=== PATIENT | female | born 1945 | race Caucasian/White ===

== ENCOUNTER 2017-12-25 00:13 | Emergency (ER) | payer MEDICARE, SELFPAY ==
[2017-12-25 00:14] VITALS: BP 206/91; PULSE 95; RESP 16; O2SAT 98
[2017-12-25 00:19] VITALS: BP 230/106; PULSE 86; RESP 18; TEMP 36.6; O2SAT 98; BMI 22.9
[2017-12-25 00:23] VITALS: O2SAT 98
--- NOTE | 2017-12-25 00:39 | RAD_ITS ---
STUDY: X-RAY CHEST REASON FOR EXAM: Female, 72 years old. COUGH SINCE 12/12 SEEN IN URGENT CARE X 2 HAD A NEG CXR TECHNIQUE: Frontal and lateral views of the chest. COMPARISON: None. FINDINGS: The lungs are clear and expanded. There is no demonstrated pleural abnormality. Normal size heart. Normal mediastinum and lei. Normal visualized pulmonary arteries. Normal visualized aortic arch and descending thoracic aorta. There is demineralization of the osseous structures. There is degenerative osteoarthritis of the bilateral shoulders. There is no demonstrated abnormality of the visualized soft tissue structures of the upper abdomen. RAD/Chest PA and Lateral IMPRESSION: Degenerative changes, as described above. No demonstrated acute cardiopulmonary process. Electronically Signed: Camacho Solorio MD at 1:45 EST Tel , Service support ,
[2017-12-25] MEDS: guaiFENesin 600 MG Tablet PO (00:58)
--- NOTE | 2017-12-25 01:10 | ED.DCSUM_ITS ---
- ER Visit Summary Date of Service: 12/25/17 Chief Complaint: [] Cough History of Present Illness: The patient is a 72 F presents with cough for the last 2 weeks. Gradual onset. Nonproductive. She was seen in urgent care 3 times. She had a chest x-ray was -4 days ago. She is using Coricidin and Tessalon Perles with minimal relief. She was on a prednisone dose that she stopped. Non-smoker. Physical Examination: [] Vital signs reviewed General: Well-nourished well-developed Head: Normocephalic atraumatic Eyes: Pupils equal round and reactive to light extraocular movements intact ENT: TMs clear no hemotympanum no trauma Neck: Nontender full range of motion Cardiovascular: Regular rate rhythm no murmurs normal S1-S2 Respiratory: No distress clear to auscultation bilaterally chest nontender Abdomen: Soft nontender nondistended normal bowel sounds no masses Back: Nontender no CVA tenderness Extremities: Nontender active range of motion ?4 extremities no trauma Skin: Normal color no trauma Neuro alert oriented cranial nerves II through XII intact normal strength sensation reflexes Test Results: [] Emergency Department Course and Treatment: [] Repeat chest x-ray negative. Patient given Mucinex. Will use liquid honey as well as Mucinex. I feel she has a cough that is continuous from a upper respiratory infection. Understands this could take another week to clear. Treatment Plan: [] Disposition: [] Impression: [] Upper respiratory infection with cough This note was generated with [employer] dictation software. It may contain incorrect words, spelling, and punctuation that were not noted in review of the chart prior to signing ED Disposition - Plan for ED Patient: Chief Complaint: Cough Referrals: Greer Hollins MD [Primary Care Provider] -
--- NOTE | 2017-12-25 01:10 | ED.DEP ---
ED Disposition - Plan for ED Patient: Disposition: Home or Assisted Living Chief Complaint: Cough Instructions: ED URI Viral Referrals: Greer Hollins MD [Primary Care Provider] -
[2017-12-25 01:23] VITALS: BP 179/80; PULSE 80; RESP 16; O2SAT 98
== END 2017-12-25 01:24 | disposition home or self-care (01) ==
PROVIDERS: Emergency Provider Emergency Medicine; Family Provider Internal Medicine; PCP Internal Medicine
DX: J06.9 Acute upper respiratory infection, unspecified (principal); R05 Cough; I10 Essential (primary) hypertension; Z79.899 Other long term (current) drug therapy
CPT/HCPCS: 71046; 99283

== ENCOUNTER → 2018-08-14 09:13 | Outpatient (CLI) | payer MEDICARE, SELFPAY ==
--- NOTE | 2018-08-14 09:16 | BI_ITS ---
MAMMOGRAPHY - BILATERAL SCREENING REASON FOR EXAM: Female, 73 years old. Routine annual screening examination. PERTINENT HISTORY: Non-contributory. TECHNIQUE: Digital bilateral breast luly (3D mammographic acquisition) in the CC and MLO projections. 2-D mediolateral oblique (MLO) and craniocaudad (CC) views of both breasts were obtained. CAD: Full Field Digital Mammography with Computer Added Detection was performed. COMPARISON: Comparison is made with prior study August 07, 2017 and July 30, 2016. FINDINGS: Breast Composition: The breasts are heterogeneously dense, which may obscure small masses. There are no dominant masses or suspicious calcifications. Stable appearance of the small bilateral axillary lymph nodes. No other significant abnormalities are identified. There has been no significant change since the prior study. BI/SCREENING MAMM (CAD), BILAT IMPRESSION: Stable bilateral screening mammogram. Yearly follow-up mammogram recommended. (A) ASSESSMENT CATEGORY: BIRADS Category 2: Benign. A letter regarding these results will be sent to the patient by the facility within 30 days. Approximately 10% of breast cancers are not detected by mammography. A normal mammogram should not delay biopsy of a clinically suspicious abnormality. [id number] Electronically Signed: Mao Oscar MD at 13:52 EDT Tel [phone], Service support ,
== END ==
PROVIDERS: Family Provider Internal Medicine; PCP Internal Medicine; Referring Provider Obstetrics & Gynecology; Visit Provider Obstetrics & Gynecology
DX: Z12.31 Encounter for screening mammogram for malignant neoplasm of breast (principal)
CPT/HCPCS: 77063; 77067

== ENCOUNTER → 2018-10-15 20:16 | Outpatient (CLI) | payer MEDICARE, SELFPAY | PROVIDERS: Family Provider Internal Medicine; PCP Internal Medicine; Visit Provider Nurse Practitioner | DX: G47.33 Obstructive sleep apnea (adult) (pediatric) (principal) | CPT/HCPCS: 95811 ==

== ENCOUNTER → 2019-03-24 07:00 | Outpatient (CLI) | payer MEDICARE, SELFPAY ==
--- NOTE | 2019-03-24 07:05 | CT_ITS ---
STUDY: CT ABDOMEN AND PELVIS WITH AND WITHOUT CONTRAST REASON FOR EXAM: Female, 74 years old. Microscopic hematuria. RADIATION DOSAGE (If Supplied By Facility): CTDIvol = ( 10.09 ) mGy, DLP = ( 623.88 ) mGycm TECHNIQUE: Transaxial images were obtained from the dome of the diaphragm to the symphysis pubis without oral contrast. 100 IV Isovue 300 was administered. Sagittal and coronal images were reconstructed. Individualized dose optimization techniques were used for this CT. COMPARISON: Comparison is made with prior study dated January 17, 2016. FINDINGS: Minimal degree of increased markings at the lung bases suggestive of mild bibasilar linear atelectasis. The visualized portions of the heart are within normal limits. Normal liver. Normal gallbladder and extrahepatic biliary system. Normal spleen. Focal calcification of the distal portion of the splenic artery. 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 Normal pancreas. Normal bilateral adrenal glands. Normal right kidney. Normal left kidney. Normal visualized stomach. Normal small intestine. Normal colon. There is non-visualization of the appendix. There is diffuse atherosclerotic calcification of the abdominal aorta, without a demonstrated aneurysm. Normal inferior vena cava. Normal retroperitoneum. Normal urinary bladder. There is absence of the uterus consistent with a prior hysterectomy. Normal abdominal wall. Normal osseous structures. CT/CT Abd/Pelvis W/WO Contrast IMPRESSION: No acute abnormality is seen. Electronically Signed: Mao Oscar, at 15:39 EDT , Service support ,
== END ==
PROVIDERS: Family Provider Internal Medicine; PCP Internal Medicine; Referring Provider Nurse Practitioner Adult Health; Visit Provider Nurse Practitioner Adult Health
DX: R31.29 Other microscopic hematuria (principal)
CPT/HCPCS: 74178; Q9967

== ENCOUNTER → 2019-10-12 17:29 | Outpatient (CLI) | payer MEDICARE, SELFPAY | PROVIDERS: Family Provider Internal Medicine; PCP Internal Medicine; Referring Provider Nurse Practitioner Adult Health | DX: R82.998 Other abnormal findings in urine (principal) | CPT/HCPCS: 87086; 87088 ==

== ENCOUNTER 2020-12-27 08:38 | Outpatient (RCR) | payer MEDICARE, SELFPAY | END 2020-12-27 23:59 | LOC: IMMUN 08:38 | PROVIDERS: Visit Provider Family Medicine | DX: Z23 Encounter for immunization (principal) | CPT/HCPCS: 0011A; 0012A; 91301 ==

== ENCOUNTER 2023-07-28 19:57 | Emergency (ER) | payer MEDICARE, SELFPAY ==
[2023-07-28 19:58] VITALS: BP 238/91; PULSE 89; RESP 17; TEMP 36.4; O2SAT 97; BMI 22.8
[2023-07-28 20:21] LABS: Mucous, Urine 0 SEEN /hpf (<or=2+)
[2023-07-28 20:32] LABS: Color, Urine Yellow (Yellow); Glucose, Dipstick Normal (Normal); Ketone-Dipstick Negative (Negative); Leukocyte Esterase-Dipstick 500 /ul (Negative); Nitrite-Dipstick Negative (Negative); Occult Blood-Urine 250 /ul (Negative); Protein-Dipstick 100 mg/dl (Negative); Specific Gravity, Urine 1.015 (1.002-1.030); Urine Bilirubin Dipstick Negative (Negative); Urine Clarity Cloudy (Clear); Urine Urobilinogen Normal (Normal)
[2023-07-28 20:42] LABS: Bacteria 1+ /hpf (None Seen); Red Blood Cells-Urine 50-100 SEEN /hpf (0-5); Renal Epithelial Cells 0-5 SEEN /hpf (0-5); Squamous Epithelial Cells - UA 0-5 SEEN /hpf (5-10); White Blood Cells >100 SEEN /hpf (0-5)
--- NOTE | 2023-07-28 21:15 | ED.VIS.FEGU ---
HPI HPI - Female History of Present Illness Chief Complaint: Complaint PFSH PFSH Home Medications cholecalciferol (vitamin D3) 25 mcg (1,000 unit) tablet (Vitamin D3) 2,000 unit PO DAILY 10/23/15 [History Last Taken 10/22/15] multivitamin with folic acid 400 mcg tablet (Thera) 1 tab PO DAILY 10/23/15 [History Last Taken 10/22/15] valsartan 160 mg tablet 240 mg PO DAILY 10/23/15 [History Last Taken 10/22/15] prednisone 20 mg tablet 60 mg (3 x 20 mg) PO DAILY ##15 11/16/15 [Rx Last Taken Unknown] benzonatate 100 mg capsule 1 - 2 tab PO TID 12/25/17 [History Last Taken Unknown] coenzyme Q10 30 mg capsule 45 mg PO DAILY 12/25/17 [History Last Taken Unknown] omega 6-qty-mzf-fish oil 1,600 mg-500 mg-800 mg/5 mL oral liquid (Fish Oil) 1,700 mg PO DAILY 12/25/17 [History Last Taken Unknown] red yeast rice 600 mg capsule 900 mg PO DAILY 12/25/17 [History Last Taken Unknown] nitrofurantoin macrocrystal 100 mg capsule 100 mg PO BID 7 days #14 caps 07/28/23 [Rx Last Taken Unknown] ondansetron 4 mg disintegrating tablet 4 mg PO Q8H PRN nausea and vomiting 3 days #9 tabs 07/28/23 [Rx Last Taken Unknown] Allergy/AdvReac Type Severity Reaction Status Date / Time amlodipine besylate Allergy Other Verified 07/28/23 21:08 [From Norvas] aspirin [From Fiorinal] Allergy Other Verified 07/28/23 21:08 butalbital [From Fiorinal] Allergy Other Verified 07/28/23 21:08 caffeine [From Fiorinal] Allergy Other Verified 07/28/23 21:08 ciprofloxacin [From Cipro] Allergy Other Verified 07/28/23 21:08 ciprofloxacin HCl Allergy Other Verified 07/28/23 21:08 [From Cipro] erythromycin base Allergy Other Verified 07/28/23 21:08 sulfamethoxazole Allergy Other Verified 07/28/23 21:08 [From Septra] trimethoprim [From Septra] Allergy Other Verified 07/28/23 21:08 almond AdvReac Intermediate Abd Verified 07/28/23 21:09 cramps/diarrhea alendronate sodium AdvReac Other Verified 07/28/23 21:08 [From Fosamax] [place] [employer] AdvReac Upset Verified 07/28/23 21:08 Stomach gluten AdvReac Upset Verified 07/28/23 21:08 Stomach lactose AdvReac Other Verified 07/28/23 21:08 soy AdvReac Upset Verified 07/28/23 21:08 Stomach Surgical History (Updated 07/28/23 @ 21:10 by Kyra Han) History of cholecystectomy Social History Smoking Status: Never smoker EXAM Physical Exam Const Vital Signs: 07/28/23 19:58 07/28/23 21:48 Temperature 97.5 F L Temperature Source Temporal Pulse Rate 89 70 Respiratory Rate 17 18 Blood Pressure 238/91 H 174/161 H Blood Pressure Mean 140 165 Pulse Ox 97 96 Oxygen Delivery Method Room Air Room Air MDM [facility] Narrative Medical decision making narrative: HISTORY OF PRESENT ILLNESS: 78-year-old female here with burning with urination for the last couple days. She further states she developed cute onset of pain in her lower abdomen associated with burning urinary symptoms. States pain is constant severe. Denies syncope. Denies vomiting. Denies constipation or diarrhea. No flank pain. REVIEW OF SYSTEMS: Pertinent positives: Burning with urination Pertinent negatives: Vomiting, chest pain PHYSICAL EXAM: Nursing triage notes reviewed, Vital signs reviewed Constitutional: please see mdm HENT: MMM Eyes: Pupils equal round and reactive to light, Extraocular muscles intact Neck: No stridor, no JVD, full neck ROM Lungs: Clear to auscultation, No wheezing or rales. No increased work of breathing, no conversational dyspnea, no accessory muscle use, no nasal flaring. No respiratory distress noted Heart: Regular rate and rhythm, No murmurs, No rubs and No gallops, 2+ distal pulses (radial, femoral, posterior tibial) in all extremities Abdomen: Soft, there is no tenderness, rigidity, rebound or guarding, no obvious peritoneal signs, no palpable pulsatile abdominal masses, no auscultated abdominal bruit : No CVAT Extremities: No edema Neuro: No focal neurological deficits, cranial nerves II through XII intact, 5/5 strength in all extremities. Intact sensation to light touch in all extremities, 2+ reflexes bilateral patella tendons. Normal gait. No ataxia. Skin: No rash or lesions noted MEDICAL DECISION MAKING: Chief Complaint: Dysuria External records reviewed: Reviewed the patient's prior urine culture from 2019 which showed mixed gram-positive and gram-negative organisms Factors affecting care: Hypertension Social determinants of health: Elderly MDM Narrative: Patient was initially hypertensive otherwise hemodynamically stable, afebrile and nontoxic-appearing I considered the following differential diagnosis: UTI, pyelonephritis, nephrolithiasis ALL IMAGES (IF OBTAINED) HAVE BEEN PERSONALLY REVIEWED AND INTERPRETED BY MYSELF. Urinalysis shows evidence of UTI with 500 leukocyte esterase as well as bleeding there is also urine bacteria noted. Will send for culture and give oral antibiotic. Obtain a CT scan rule out surgical pathology abdomen. CT scan unremarkable for hydronephrosis hydroureter and likely passed kidney stone. This explains patient's symptoms as well as hematuria. The patient and/or family, caregivers express understanding. The patient and/or family, caregivers agrees with the plan. Shared decision making: I will have a discussion with the patient and or visitors regarding risk/benefits of further testing or admission. They will be made aware of of the risk/benefits inherent in this decision they will be given the opportunity to voice understanding. Total critical care time today provided was at least 0 minutes. This excludes separately billable procedures. Critical care time (if documented) is secondary to the patient having high probability of clinically significant/life threatening deterioration in the patient's condition which required my urgent intervention. Impression: 1. UTI 2. poorly controlled hypertension 3. Nephrolithiasis 4. Hydronephrosis Dispo: Discharge home Lab Data Attestation: I reviewed the patient's lab results. Labs: Laboratory Results - last 24 hr 07/28/23 20:19 Urine Color Yellow Urine Clarity Cloudy Urine pH 8.0 Ur Specific [place] 1.015 Urine Protein 100 H Urine Glucose (UA) Normal Urine Ketones Negative Urine Occult Blood 250 H Urine Nitrite Negative Urine Bilirubin Negative Urine Urobilinogen Normal Ur Leukocyte Esterase 500 H Urine RBC 50-100 SEEN Urine WBC >100 SEEN Ur Squamous Epith Cells 0-5 SEEN Ur Renal Epithelial Cell 0-5 SEEN Urine Bacteria 1+ Urine Mucus 0 SEEN Radiography Diagnostic Testing: Clinical Impression(s) from Imaging Studies Abdomen/Pelvis CT 07/28/23 21:35 IMPRESSION: Borderline right-sided hydronephrosis and hydroureter with no ureteral stones. Several small bladder calculi identified which may represent recently passed stones. No other acute abnormalities are identified. Electronically Signed: Raciel Odonnell MD at 22:31 EDT , Discharge Plan Triage Chief Complaint: Complaint ED Provider: Neil Cook Dx/Rx/DC Orders Instructions: ED Hematuria, ED Kidney Stone, Passed Prescriptions: New nitrofurantoin macrocrystal 100 mg capsule 100 mg PO BID 7 Days Qty: 14 0RF Rx Instructions: must administer with a meal/food ondansetron 4 mg tablet,disintegrating 4 mg PO Q8H PRN (Reason: nausea and vomiting) 3 Days Qty: 9 0RF No Action valsartan 160 MG tablet 240 mg PO DAILY Patient Comments: BLOOD PRESSURE cholecalciferol (vitamin D3) [Vitamin D3] 1,000 UNIT tablet 2,000 unit PO DAILY Patient Comments: SUPPLEMENT multivitamin with folic acid [Thera] 1 TABLET tablet 1 tab PO DAILY Patient Comments: SUPPLEMENT prednisone 20 MG tablet 60 mg PO DAILY Qty: 15 0RF benzonatate 100 MG capsule 1 - 2 tab PO TID Patient Comments: take 1-2 capsules by mouth three times a day coenzyme Q10 30 MG capsule 45 mg PO DAILY red yeast rice 600 MG capsule 900 mg PO DAILY omega 0-bzn-hxg-fish oil [Fish Oil] 1,600 MG/5 ML liquid 1,700 mg PO DAILY Primary Care Provider: Greer Hollins Referrals: Greer Hollins MD [Primary Care Provider] - Activity Restrictions/Additional Instructions: Thank you for trusting us with your care today! Please take Tylenol (2 pills, 650 mg), ibuprofen (2 pills, 400 mg) every 6 hours as needed for pain and fever control. Please take antibiotics until course is complete. Please take Zofran as needed for nausea and vomiting at home. Please return to the emergency department if your symptoms change or worsen. Specifically if cannot tolerate antibiotics by mouth, cannot tolerate pain medicine by mouth. If your symptoms change or worsen in any way Please follow with your primary care physician for further outpatient evaluation and management. Disposition Disposition: Home, Self Care
--- NOTE | 2023-07-28 21:35 | CT_ITS ---
EXAM: CT ABDOMEN AND PELVIS WITHOUT INTRAVENOUS CONTRAST CLINICAL INDICATION: lower pelvic Pain TECHNIQUE: Helically acquired images were obtained of the abdomen and pelvis without intravenous contrast. This CT exam was performed using one or more of the following dose reduction techniques: automated exposure control, adjustment of the mA and/or kV according to patient size, and/or use of iterative reconstruction technique. COMPARISON: 03/24/2019 FINDINGS: LOWER THORAX: Unremarkable. Lung bases are clear. No cardiomegaly. No significant pericardial effusion. ABDOMEN: LIVER: Unremarkable. Homogeneous. GALLBLADDER AND BILE DUCTS: Gallbladder is nonvisualized and may be surgically absent. No intra- or extrahepatic biliary ductal dilation. PANCREAS: Unremarkable. No focal cystic mass. SPLEEN: Unremarkable. Normal size without focal cystic or solid mass. ADRENALS: Unremarkable. No nodules. KIDNEYS AND URETERS: There is borderline right-sided hydronephrosis and hydroureter. No ureteral stones are identified however no calcifications within the urinary bladder which may represent recently passed ureteral stones. Normal renal size and position. STOMACH AND BOWEL: Unremarkable. No stomach or bowel distention. No focal inflammatory change. PELVIS: APPENDIX: No evidence of acute appendicitis. BLADDER: Unremarkable. REPRODUCTIVE: Patient is status post hysterectomy. ABDOMEN and PELVIS: INTRAPERITONEAL SPACE: Unremarkable. No ascites or other fluid collection. No free air. BONES/JOINTS: Unremarkable. No suspicious lytic or blastic abnormality. SOFT TISSUES: Unremarkable. No discrete abdominal or pelvic wall hernia. VASCULATURE: Unremarkable. Abdominal aorta is non-dilated. LYMPH NODES: Unremarkable. No enlarged lymph nodes. CT/Abdomen/Pelvis without Cont IMPRESSION: Borderline right-sided hydronephrosis and hydroureter with no ureteral stones. Several small bladder calculi identified which may represent recently passed stones. No other acute abnormalities are identified. Electronically Signed: Raciel Odonnell MD at 22:31 EDT ,
[2023-07-28] MEDS: Ibuprofen 200 MG Tablet 400 MG PO (21:45)
[2023-07-28] MEDS: Nitrofurantoin Macrocrystals 100 MG Capsule PO (21:45)
[2023-07-28] MEDS: Acetaminophen 325 MG Tablet 650 MG PO (21:45)
[2023-07-28 21:48] VITALS: BP 174/161; PULSE 70; RESP 18; O2SAT 96
[2023-07-28 23:13] VITALS: PULSE 61; RESP 18; O2SAT 97
[2023-07-28 23:16] VITALS: BP 189/57; PULSE 61; RESP 18; O2SAT 95
== END 2023-07-28 23:51 | disposition home or self-care (01) ==
PROVIDERS: Emergency Provider Emergency Medicine; PCP Internal Medicine; Visit Provider Emergency Medicine
DX: N13.6 Pyonephrosis (principal); I10 Essential (primary) hypertension; R30.0 Dysuria
CPT/HCPCS: 74176; 81001; 87086; 87088; 99283

== ENCOUNTER 2023-07-31 01:35 | Observation (INO) | payer MEDICARE, SELFPAY ==
[2023-07-31] VITALS (10 sets, daily range): BP systolic 129–227; BP diastolic 60–97; PULSE 61–78; RESP 16–20; TEMP 36.3–36.9; O2SAT 93–98; BMI 24.0; BMI 22.8
--- NOTE | 2023-07-31 01:48 | CT_ITS ---
STUDY: CT CHEST, ABDOMEN T PELVIS WITH CONTRAST REASON FOR EXAM: Female, 78 years old. chest and back pain RADIATION DOSAGE (If Supplied By Facility): CTDIvol = ( 11.87 ) mGy, DLP = ( 713.20 ) mGycm TECHNIQUE: Transaxial imaging was performed following intravenous administration of IV 100mL Isovue-370. Individualized dose optimization techniques were used for this CT. COMPARISON: CT Abdomen/PelvisSep 2022 FINDINGS: CHEST The lungs are normal. There is no demonstrated pleural abnormality. Normal heart and pericardium. Normal mediastinum. Normal hilar regions. Normal unenhanced pulmonary arteries. Normal aorta arch and descending thoracic aorta. Normal osseous structures. There is no demonstrated abnormality of the visualized upper abdomen. ABDOMEN The visualized lung bases are unremarkable. The visualized portions of the heart are within normal limits. Normal liver. There is non-visualization of the gallbladder, which may be secondary to either contraction or a prior cholecystectomy. Normal spleen. Normal pancreas. Normal bilateral adrenal glands. Normal right kidney. Normal left kidney. There is marked gastric wall thickening at the antrum suggesting gastric ulcer. Normal small intestine. Normal colon. The appendix is visualized and appears normal. Normal abdominal aorta. Normal inferior vena cava. Normal retroperitoneum. Normal abdominal wall. Normal osseous structures. PELVIS Normal urinary bladder. Normal visualized small intestine. Normal visualized colon. There is no pelvic fluid. There is no pelvic lymphadenopathy or mass lesion. Normal visualized pelvic arteries. Normal abdominal wall. Normal osseous structures. CT/CT Chest, Abd, Pel w/Contrast IMPRESSION: There is marked gastric wall thickening at the antrum suggesting gastric ulcer. Electronically Signed: Camacho Solorio MD at 3:36 EDT ,
--- NOTE | 2023-07-31 01:51 | EDS_ITS ---
HPI History of Present Illness Chief Complaint: Abd Pain Narrative Narrative: 78-year-old female, past medical history of hypertension, hyperlipidemia, takes losartan 50 and metoprolol 50 mg in the morning presents with pain in her right flank and back which she had previously. She was seen in the emergency department 2-3 days ago and was diagnosed with kidney stones in the past. She states she also has a urinary tract infection for which she is currently taking Macrobid. Her instructions stated that if she began having pain again that she should return to the emergency department. Yesterday morning she awoke at 630 with the return of her pain in her right flank. [place] better as she got up and out of bed. Around noon she started having increased pain again. She denies any fevers or chills. Additionally, she began having chest tightness, possible back pain, and did not feel quite right. She denies any exacerbating or alleviating factors. PFSH PFS Home Medications cholecalciferol (vitamin D3) 25 mcg (1,000 unit) tablet (Vitamin D3) 2,000 unit PO DAILY 10/23/15 [History Last Taken 10/22/15] multivitamin with folic acid 400 mcg tablet (Thera) 1 tab PO DAILY 10/23/15 [History Last Taken 10/22/15] valsartan 160 mg tablet 240 mg PO DAILY 10/23/15 [History Last Taken 10/22/15] prednisone 20 mg tablet 60 mg (3 x 20 mg) PO DAILY ##15 11/16/15 [Rx Last Taken Unknown] benzonatate 100 mg capsule 1 - 2 tab PO TID 12/25/17 [History Last Taken Unknown] coenzyme Q10 30 mg capsule 45 mg PO DAILY 12/25/17 [History Last Taken Unknown] omega 1-rah-yzb-fish oil 1,600 mg-500 mg-800 mg/5 mL oral liquid (Fish Oil) 1,700 mg PO DAILY 12/25/17 [History Last Taken Unknown] red yeast rice 600 mg capsule 900 mg PO DAILY 12/25/17 [History Last Taken Unknown] nitrofurantoin macrocrystal 100 mg capsule 100 mg PO BID 7 days #14 caps 07/28/23 [Rx Last Taken Unknown] ondansetron 4 mg disintegrating tablet 4 mg PO Q8H PRN nausea and vomiting 3 days #9 tabs 07/28/23 [Rx Last Taken Unknown] Allergy/AdvReac Type Severity Reaction Status Date / Time amlodipine besylate Allergy Other Verified 07/28/23 21:08 [From Norvasc] aspirin [From Fiorinal] Allergy Other Verified 07/28/23 21:08 butalbital [From Fiorinal] Allergy Other Verified 07/28/23 21:08 caffeine [From Fiorinal] Allergy Other Verified 07/28/23 21:08 ciprofloxacin [From Cipro] Allergy Other Verified 07/28/23 21:08 ciprofloxacin HCl Allergy Other Verified 07/28/23 21:08 [From Cipro] erythromycin base Allergy Other Verified 07/28/23 21:08 sulfamethoxazole Allergy Other Verified 07/28/23 21:08 [From Septra] trimethoprim [From Septra] Allergy Other Verified 07/28/23 21:08 almond AdvReac Intermediate Abd Verified 07/28/23 21:09 cramps/diarrhea alendronate sodium AdvReac Other Verified 07/28/23 21:08 [From Fosamax] [place] And Derivatives AdvReac Upset Verified 07/28/23 21:08 Stomach gluten AdvReac Upset Verified 07/28/23 21:08 Stomach lactose AdvReac Other Verified 07/28/23 21:08 soy AdvReac Upset Verified 07/28/23 21:08 Stomach Surgical History History of cholecystectomy Social History Smoking Status: Never smoker ROS ROS ED ROS Narrative Constitutional: No fever, no chills. HEENT: No sore throat. No neck pain. No loss of vision. No rhinorrhea. Cardiovascular: Positive chest tightness chest pain. No palpitations. No pedal edema. Respiratory: No cough, no shortness of breath. Abdominal: No abdominal pain. No nausea. No vomiting. Genitourinary: No dysuria. No hematuria. Positive right flank pain. Musculoskeletal: No myalgias. No arthralgias. Neurologic: No headaches. No dizziness. No lightheadedness. Skin: No rash. No change in color. Psychiatric: No depression. No anxiety. EXAM Physical Exam Narrative Exam Narrative: Afebrile. Vital signs noted. HEENT: Normocephalic. Atraumatic. PERRL, EOMI. Neck soft and supple. No point tenderness or step off. Cardiovascular: Regular rate and rhythm. No murmurs, rubs, or gallops appreciated. Respiratory: No tachypnea. Lungs clear to auscultation bilaterally. Gastrointestinal: Abdomen soft, nontender, with normoactive bowel sounds. No rebound or guarding. Neurological: Awake. Alert. Nonfocal, nonlateralizing. Skin: No rash. Normal color. No pallor. Musculoskeletal: No pedal edema. Full range of motion extremities. Const Vital Signs: 07/31/23 01:35 07/31/23 01:42 07/31/23 01:49 Temperature 98.1 F Temperature Source Temporal Pulse Rate 67 Respiratory Rate 16 Respiratory Effort Non-Labored Respiratory Pattern Normal Blood Pressure 227/78 H Blood Pressure Mean 127 Pulse Ox 96 95 Oxygen Delivery Method Room Air Room Air 07/31/23 02:16 Temperature Temperature Source Pulse Rate Respiratory Rate Respiratory Effort Respiratory Pattern Blood Pressure 196/68 H Blood Pressure Mean 110 Pulse Ox Oxygen Delivery Method MDM MDM MDM Narrative Medical decision making narrative: During the history and physical, blood pressure elevated to 240 systolic. Concern is for hypertensive urgency/emergency given her description of chest pain. While she states she may have had more mid back pain, with a blood pressure that elevated, concern would be for aortic dissection as well. She does have equal pulses however. She will be given hydralazine and attempt to lower her blood pressure, and additionally cover his of work-up was pursued. CT of the chest, abdomen, and pelvis will be obtained with contrast. I do feel that this would be able to also review to see if she has hydronephrosis or a new ureteral stone. EKG was obtained and interpreted by myself independently as sinus rhythm with PACs at [address] changes. No STEMI. I reviewed her prior records/ED visit. The CT did show borderline hydronephrosis and calcifications of the bladder consistent with past kidney stones. I will obtain serial troponins as well to help rule out cardiac ischemia. I reviewed the patient's laboratory work and she has normal white count of 7.4, hemoglobin normal at 14.3, hematocrit 43.4, platelet count normal at 211. Electrolyte panel shows potassium slightly low at 3.2 which was replaced orally, normal sodium of 141, chloride normal at 104, carbon dioxide slightly elevated at 33 which I think is nonspecific. Glucose is appropriately elevated at 115 with an anion gap low at 4. Her initial high-sensitivity troponin is 7. However, I do feel that this is a 6-hour troponin as her symptoms began yesterday afternoon. Urinalysis shows significant improvement from her previous with 0-5 WBCs, no signs of current infection. I reviewed the radiology report for the CT of the chest, abdomen, and pelvis. There is no evidence of hydronephrosis and she has normal bilateral kidneys. There is no aortic dissection noted as the patient was describing back pain, headache, and chest pain. There is some mild thickening of the gastric wall which is suspicious for gastric ulcer. After hydralazine, her blood pressure was 196/68, and still elevated at 177 systolic shortly thereafter. I do feel that this is a significant reduction, but I am concerned for hypertensive urgency. I discussed the patient with Dr. Vick for assignment to observation. Patient is in stable condition. History & Record Review Discussion w/independent historian: Patient Additional record(s) reviewed:: Prior ED visit and Prior labs Lab Data Attestation: I reviewed the patient's lab results. Labs: Laboratory Results - last 24 hr 07/31/23 07/31/23 01:47 02:07 WBC 7.4 RBC 4.48 Hgb 14.3 Hct 43.4 MCV 96.9 MCH 31.9 MCHC 32.9 RDW Std Deviation 48.6 H RDW Coeff of Sarah Beth 13.4 Plt Count 211 MPV 9.4 Immature Gran % (Auto) 0.100 Neut % (Auto) 52.0 Lymph % (Auto) 34.8 [place] % (Auto) 9.4 Eos % (Auto) 3.2 Baso % (Auto) 0.5 Absolute Neuts (auto) 3.9 Absolute Lymphs (auto) 2.59 Nucleated RBC % 0 Sodium 141 Potassium 3.2 L Chloride 104 Carbon Dioxide 33.0 H Anion Gap 4 L BUN 12 Creatinine 0.85 Estim Creat Clear Calc 44.53 Est GFR (MDRD) Af Amer 84 Est GFR (MDRD) Non-Af 69 BUN/Creatinine Ratio 14.2 Glucose 115 H Calcium 8.8 Troponin I High Sens 7 Urine Color SEE COMMENT BELOW Urine Clarity Clear Urine pH 8.0 Ur Specific [place] 1.010 Urine Protein Negative Urine Glucose (UA) Normal Urine Ketones Negative Urine Occult Blood Negative Urine Nitrite Negative Urine Bilirubin Negative Urine Urobilinogen Normal Ur Leukocyte Esterase 500 H Urine RBC 0 SEEN Urine WBC 0-5 SEEN Ur Squamous Epith Cells 0 SEEN Amorphous Sediment 2+ Urine Bacteria RARE Urine Mucus 0 SEEN Radiography Diagnostic Testing: Clinical Impression(s) from Imaging Studies Chest/Abdomen/Pelvis CT 07/31/23 01:48 IMPRESSION: There is marked gastric wall thickening at the antrum suggesting gastric ulcer. Electronically Signed: Camacho Solorio MD at 3:36 EDT , Management Discussion w/another healthcare provider: Hospitalist Discharge Plan Dx/Rx/DC Orders Clinical Impression: Hypertensive urgency, Right flank pain, Chest pain, Hypokalemia Disposition Disposition: Acute Care Hospital [facility]
[2023-07-31 01:55] LABS: Absolute Lymphocyte Count 2.59 X10^3/uL (0.83-4.51); Absolute Neutrophil Count 3.9 X10^3/uL (2.0-7.7); Basophil# 0.04 X10^3/uL; Basophil% 0.5 % (0-1); Eosinophil# 0.24 X10^3/uL; Eosinophils% 3.2 % (0-5); Hematocrit 43.4 % (37-47); Hemoglobin 14.3 g/dL (12.0-15.0); Lymphocyte # 2.59 X10^3/ul (0.83-4.51); Lymphocyte % 34.8 % (19-41); Mean Corp Hgb Conc 32.9 g/dL (32-36); Mean Corpuscular Hgb 31.9 pg (27.0-32.0); Mean Corpuscular Volume 96.9 fL (81-99); Mean Platelet Vol. 9.4 fl (6.2-12.0); Monocyte% 9.4 % (0-10); NRBC Flagged by Analyzer 0 % (0-5); Neutrophil # 3.86 X10^3/uL (2.7-7.7); Platelet Count 211 K/mm3 (150-450); RBC Distribution Width CV 13.4 % (11.6-14.6); RBC Distribution Width SD 48.6 fl (35.1-43.9); Red Blood Count 4.48 M/mm3 (4.2-5.4); White Blood Count 7.4 K/mm3 (4.4-11.0)
[2023-07-31] MEDS: Aspirin 81 MG TAB.CHEW 324 MG PO (01:57)
[2023-07-31] MEDS: hydrALAZINE 20 MG/ML Vial 10 MG IV (01:57)
[2023-07-31 02:13] LABS: Mucous, Urine 0 SEEN /hpf (<or=2+); Red Blood Cells-Urine 0 SEEN /hpf (0-5); Squamous Epithelial Cells - UA 0 SEEN /hpf (5-10)
[2023-07-31 02:13] LABS: Anion Gap 4 (5-15); BUN 12 mg/dL (7-18); BUN/Creat Ratio 14.2 RATIO (10-20); Calcium,Total 8.8 mg/dL (8.5-10.1); Chloride 104 mmol/L (98-107); Creatinine, Serum 0.85 mg/dL (0.55-1.02); EST Glomerular Filtration Rate 69 mL/min (>60); Est Glom Filt Rate - Afr Amer 84 mL/min (>60); Estimated Creatinine Clearance 44.53 ml/min; Glucose 115 mg/dL (74-106); Potassium 3.2 mmol/L (3.5-5.1); Sodium Level 141 mmol/L (136-145); Troponin-I HS (w/2H Reflex) 7 pg/mL (3.0-54.0)
[2023-07-31 02:14] LABS: Glucose, Dipstick Normal (Normal); Ketone-Dipstick Negative (Negative); Leukocyte Esterase-Dipstick 500 /ul (Negative); Nitrite-Dipstick Negative (Negative); Occult Blood-Urine Negative /ul (Negative); Protein-Dipstick Negative (Negative); Urine Bilirubin Dipstick Negative (Negative); Urine Clarity Clear (Clear); Urine Urobilinogen Normal (Normal)
[2023-07-31 02:21] LABS: Color, Urine SEE COMMENT BELOW (Yellow)
[2023-07-31 02:23] LABS: Amorphous Sediment 2+; Bacteria RARE /hpf (None Seen); White Blood Cells 0-5 SEEN /hpf (0-5)
[2023-07-31] MEDS: Potassium Chloride Oral Tablet 20 MEQ 40 MEQ PO (03:10)
[2023-07-31 03:53] LABS: Reflex Troponin-HS? (from REC) Y
--- NOTE | 2023-07-31 04:38 | PCM.HP.STD ---
[facility] - General General Date of Admission: 07/31/23 Date of Service: 07/31/23 Chief Complaint: Right flank pain HPI Narrative RACHEL OATES, is a 78 F with a significant history of hypertension, hyperlipidemia, and osteoporosis who presented to the emergency department with excruciating right flank pain. Because of this right flank pain she was at the emergency department on 07/28/2023. She was diagnosed at that time with UTI, poorly controlled hypertension, nephrolithiasis and hydronephrosis. She was discharged home on nitrofurantoin and ondansetron. Her pain subsided only for it to reoccur. The pain improves with standing up and the pain worsens with lying down. The pain began to move towards the center of her chest and in between her shoulder blades. At the emergency department the pain at the chest and in between her shoulder blades went away while her right flank pain continued to be intermittent. On her second visit to the emergency department her blood pressure remained excessively high even though she stated that she has been compliant with her metoprolol and losartan. She has not had any blood pressure medication changes at least in the past 6 months. [facility] Home Medications cholecalciferol (vitamin D3) 25 mcg (1,000 unit) tablet (Vitamin D3) 2,000 unit PO DAILY 10/23/15 [History Last Taken 10/22/15] multivitamin with folic acid 400 mcg tablet (Thera) 1 tab PO DAILY 10/23/15 [History Last Taken 10/22/15] coenzyme Q10 30 mg capsule 45 mg PO DAILY 12/25/17 [History Last Taken Unknown] omega 6-ptn-xjr-fish oil 1,600 mg-500 mg-800 mg/5 mL oral liquid (Fish Oil) 1,700 mg PO DAILY 12/25/17 [History Last Taken Unknown] red yeast rice 600 mg capsule 900 mg PO DAILY 12/25/17 [History Last Taken Unknown] nitrofurantoin macrocrystal 100 mg capsule 100 mg PO BID 7 days #14 caps 07/28/23 [Rx Last Taken Unknown] ondansetron 4 mg disintegrating tablet 4 mg PO Q8H PRN nausea and vomiting 3 days #9 tabs 07/28/23 [Rx Last Taken Unknown] losartan 50 mg tablet 50 mg PO DAILY 07/31/23 [History Last Taken Unknown] metoprolol succinate 50 mg tablet,extended release 24 hr 50 mg PO DAILY 07/31/23 [History Last Taken Unknown] Allergy/AdvReac Type Severity Reaction Status Date / Time amlodipine besylate Allergy Other Verified 07/28/23 21:08 [From Norvasc] aspirin [From Fiorinal] Allergy Other Verified 07/28/23 21:08 butalbital [From Fiorinal] Allergy Other Verified 07/28/23 21:08 caffeine [From Fiorinal] Allergy Other Verified 07/28/23 21:08 ciprofloxacin [From Cipro] Allergy Other Verified 07/28/23 21:08 ciprofloxacin HCl Allergy Other Verified 07/28/23 21:08 [From Cipro] erythromycin base Allergy Other Verified 07/28/23 21:08 sulfamethoxazole Allergy Other Verified 07/28/23 21:08 [From Septra] trimethoprim [From Septra] Allergy Other Verified 07/28/23 21:08 almond AdvReac Intermediate Abd Verified 07/28/23 21:09 cramps/diarrhea alendronate sodium AdvReac Other Verified 07/28/23 21:08 [From Fosamax] [place] And Derivatives AdvReac Upset Verified 07/28/23 21:08 Stomach gluten AdvReac Upset Verified 07/28/23 21:08 Stomach lactose AdvReac Other Verified 07/28/23 21:08 soy AdvReac Upset Verified 07/28/23 21:08 Stomach Family History Other Gastric artery aneurysm Heart disease Pancreatic cancer Thyroid disorder Surgical History H/O: hysterectomy History of bladder suspension procedure History of cholecystectomy Social History Smoking Status: Never smoker ROS ROS Narrative Pertinent positives and pertinent negatives as noted in HPI. All other systems were reviewed and are negative Vital Signs Vital Signs Vital Signs: 07/31/23 01:35 07/31/23 01:42 07/31/23 01:49 Temperature 98.1 F Temperature Source Temporal Pulse Rate 67 Respiratory Rate 16 Respiratory Effort Non-Labored Respiratory Pattern Normal Blood Pressure 227/78 H Blood Pressure Mean 127 Pulse Ox 96 95 Oxygen Delivery Method Room Air Room Air 07/31/23 02:16 07/31/23 04:23 07/31/23 04:00 Temperature 97.9 F Temperature Source Temporal Pulse Rate 78 75 Respiratory Rate 19 H 20 H Respiratory Effort Respiratory Pattern Blood Pressure 196/68 H 177/65 H 179/97 H Blood Pressure Mean 110 102 124 Pulse Ox 96 97 Oxygen Delivery Method Room Air Room Air Weight Weight: 59.6 kg Body Mass Index (BMI) 24.0 Physical Exam Narrative Physical exam: General: Well-nourished, well-developed. Head: Normocephalic, atraumatic, no tenderness Eyes: Vision is grossly intact. EOMI ENT, no trauma, moist mucous membranes, no rhinorrhea Neck: Nontender, No thyromegaly. CVS: Regular rate and rhythm. S1-S2 present. No murmur, gallop or rub. Respiratory : clear to auscultation bilaterally, chest wall nontender Abdomen: Soft, nontender, nondistended, normal bowel sounds, no masses : Deferred Back: Nontender, no CVA tenderness Extremities: Nontender full range of motion, no trauma Skin: Normal color, no trauma, abrasions Neuro: Alert, oriented, cranial nerves II through XII grossly intact. Psychiatry: Normal mood. Normal affect. Not depressed. Not anxious. Results Lab / Micro Data 07/31/23 01:47 07/31/23 01:47 Labs: Laboratory Results - last 24 hr 07/31/23 01:47: WBC 7.4, RBC 4.48, Hgb 14.3, Hct 43.4, MCV 96.9, MCH 31.9, MCHC 32.9, RDW Std Deviation 48.6 H, RDW Coeff of Sarah Beth 13.4, Plt Count 211, MPV 9.4, Immature Gran % (Auto) 0.100, Neut % (Auto) 52.0, Lymph % (Auto) 34.8, [place] % (Auto) 9.4, Eos % (Auto) 3.2, Baso % (Auto) 0.5, Absolute Neuts (auto) 3.9, Absolute Lymphs (auto) 2.59, Nucleated RBC % 0, Sodium 141, Potassium 3.2 L, Chloride 104, Carbon Dioxide 33.0 H, Anion Gap 4 L, BUN 12, Creatinine 0.85, Estim Creat Clear Calc 44.53, Est GFR (MDRD) Af Amer 84, Est GFR (MDRD) Non-Af 69, BUN/Creatinine Ratio 14.2, Glucose 115 H, Calcium 8.8, Troponin I High Sens 7 07/31/23 02:07: Urine Color SEE COMMENT BELOW, Urine Clarity Clear, Urine pH 8.0, Ur Specific [place] 1.010, Urine Protein Negative, Urine Glucose (UA) Normal, Urine Ketones Negative, Urine Occult Blood Negative, Urine Nitrite Negative, Urine Bilirubin Negative, Urine Urobilinogen Normal, Ur Leukocyte Esterase 500 H, Urine RBC 0 SEEN, Urine WBC 0-5 SEEN, Ur Squamous Epith Cells 0 SEEN, Amorphous Sediment 2+, Urine Bacteria RARE, Urine Mucus 0 SEEN Radiology Impression Chest/Abdomen/Pelvis CT 07/31/23 01:48 IMPRESSION: There is marked gastric wall thickening at the antrum suggesting gastric ulcer. Electronically Signed: Camacho Solorio MD at 3:36 EDT Reading Location ID and State: [facility] / [place] Tel , Service support , Assessment & Plan Assessment/Plan (1) Hypertensive emergency: (2) Hypokalemia: PLAN: Plan Hypertensive emergency ED doc reports high systolic blood pressure of 240 while inpatient. With right flank pain, chest pain and pain between shoulder blades. Discussed with ED doctor who gave metoprolol titrate 25 mg p.o. x1 after patient has received hydralazine 10 mg IV push. We will continue home losartan 50 mg p.o. daily. We will escalate home metoprolol succinate from 50 mg daily to 75 mg p.o. daily. We will check echocardiogram. We will check arterial duplex of renal arteries. We will check TSH, a.m. cortisol, catecholamines, aldosterone, and aldosterone/renin activity. We will observe at the progressive care unit. Troponin was unremarkable. Trend troponins. Received full dose aspirin emergency department. Daily aspirin ordered. Check lipid panel Hypokalemia Potassium presentation was 3.2. Replacement ordered. Trend. Recent right kidney stone Patient with multiple allergies. We will stop her Macrodantin. Fosfomycin x1 ordered. Gastric ulcer Impression of chest/abdomen/pelvis CT:There is marked gastric wall thickening at the antrum suggesting gastric ulcer Hospitalist independent interpretation: Agrees. DVT Prophylaxis: Subcutaneous Lovenox ordered. Time spent in the patient's overall evaluation,decision-making process, review of diagnostic data, adjustment of management, discussion with other providers, nursing nursing and ancillary staff involved in patient's care documentation, 75 minutes. Charges/Coding Visit Charges Inpatient E&M: 48755 Init Hosp L3
[2023-07-31 04:53] LABS: Troponin-I HS 7 pg/mL (3.0-54.0)
[2023-07-31] MEDS: Metoprolol Tartrate 50 MG Tablet PO (05:17)
--- NOTE | 2023-07-31 05:51 | ECHOD_ITS ---
Reason For Study: HTN Procedure This was a 2D Doppler, Color Flow transthoracic echocardiogram. Exam performed portable in patient room. Left Ventricle Normal LV size. Mild concentric left ventricular hypertrophy. Sigmoid septum. The left ventricular ejection fraction is 75 %. Diastolic function is indeterminate. Right Ventricle Normal right ventricle. Mitral Valve Mild focal mitral valve calcification of the anterior leaflet. Trivial mitral valve insufficiency. Tricuspid Valve Trivial tricuspid valve insufficiency. Normal pulmonary artery pressure. Aortic Valve Aortic sclerosis, no stenosis. Mild (1+) aortic valve insufficiency. Pulmonic Valve The pulmonic valve is not well visualized. Great Vessels Normal sized aortic root. Pericardium/Pleural No pericardial effusion. MMode/2D Measurements & Calculations LVIDd: 3.4 cm IVSd: 1.2 cm Ao root diam: 2.9 cm LVIDs: 2.1 cm LVPWd: 1.2 cm FS: 36.4 % LAV(MOD-bp): 43.3 ml LVAd ap4: 19.5 cm2 SV(MOD-sp4): 30.8 ml LAV(MOD-bp) Indexed: 27.6 ml/m2 LVLd ap4: 6.5 cm LAV(MOD-sp2): 38.3 ml EDV(MOD-sp4): 48.5 ml LAV(MOD-sp4): 48.0 ml EDV(sp4-el): 49.9 ml LVAs ap4: 10.7 cm2 LVLs ap4: 5.6 cm ESV(MOD-sp4): 17.7 ml ESV(sp4-el): 17.2 ml EF(MOD-sp4): 63.5 % EF(sp4-el): 65.4 % SV(sp4-el): 32.6 ml LA dimension(2D): 3.3 cm LA A4 area: 17.4 cm2 RA A4 area: 10.9 cm2 TAPSE: 1.5 cm Time Measurements MV dec time: 0.17 sec Doppler Measurements & Calculations MV E max shahab: 56.4 cm/sec Lat Peak E' Shahab: 6.2 cm/sec Med Peak E' Shahab: 5.6 cm/sec MV A max shahab: 52.0 cm/sec E/E' lat: 9.1 E/E' med: 10.0 MV E/A: 1.1 MV V2 max: 87.2 cm/sec Ao V2 max: 131.7 cm/sec MV max P.0 mmHg MV dec slope: 326.8 cm/sec2 Ao max P.0 mmHg MV V2 mean: 47.9 cm/sec Ao V2 mean: 90.6 cm/sec MV mean P.1 mmHg Ao mean P.8 mmHg MV V2 VTI: 32.8 cm Ao V2 VTI: 34.7 cm AV (velocity ratio): 0.95 AI max shahab: 442.1 cm/sec LV V1 max: 137.7 cm/sec TR max shahab: 258.4 cm/sec AI max P.2 mmHg LV V1 max P.6 mmHg TR max P.7 mmHg LV V1 mean P.0 mmHg AI dec slope: 170.9 cm/sec2 LV V1 mean: 92.9 cm/sec AI P1/2t: 757.5 msec LV V1 VTI: 33.0 cm ECHO/Echo Complete Interpretation Summary Mild concentric left ventricular hypertrophy. Sigmoid septum. The left ventricular ejection fraction is 75 %. Diastolic function is indeterminate. Mild focal mitral valve calcification of the anterior leaflet. Aortic sclerosis, no stenosis. Mild (1+) aortic valve insufficiency. Ordering Physician: Oren Vick Referring Physician: Greer Hollins M.D. Performed By: Sarah Lorenzo RCS
--- NOTE | 2023-07-31 05:51 | RDU_ITS ---
Reason For Study: HTN Right Renal Artery Left Renal Artery Right renal artery ostium 98.6/15.1 Left renal artery ostium 123.4/20.2 RSV/EDV. PSV/EDV. Right renal artery proximal Left renal artery proximal PSV/EDV 116.1/21.7 PSV/EDV. 151.2/30.5 . Right renal artery mid 188.6/32.7 Left renal artery mid 164.4/39.3 PSV/EDV. PSV/EDV . Right renal artery distal Left renal artery distal 160.0/34.9 153.4/34.9 PSV/EDV. PSV/EDV. Right RAR 2.48. Left RAR 2.17. Right Renal Parenchyma Left Renal Parenchyma Upper Pole Medula 24.7/6.7 PSV/EDV. Left upper pole medulla 37.9/8.7 Right upper pole medulla EDR 0.30 . PSV/EDV . Right upper pole medulla R.I. Left upper pole medulla EDR 0.20 . 0.73 . Left upper pole medulla R.I. 0.77 . Upper Tej Cortx 20.4/5.3 PSV/EDV. UP Cortex 19.7/6.0 PSV/EDV. Right upper pole cortex EDR 0.30 . Left upper pole cortex EDR 0.30 . Right upper pole cortex R.I. 0.74 . Left upper pole cortex R.I. 0.70 . Right lower Pole medulla 19.9/5.8 Left lower Pole medulla 28.0/7.1 PSV/EDV . PSV/EDV . Right lower pole medulla EDR 0.30 . Left lower pole medulla EDR 0.30 . Right lower pole medulla R.I. Left lower pole medulla R.I. 0.75 . 0.71 . Lower Pole Cortx 20.7/5.4 PSV/EDV. Lower Pole Cortex 19.5/5.3 PSV/EDV. Left lower pole cortex EDR 0.30 . Right lower pole cortex EDR 0.30 . Left lower pole cortex R.I. 0.74 . Right lower pole cortex R.I. 0.73 . Left Renal Hilar Right Renal Hilar LT Hilar avg 88.3/19.5 PSV/EDV . Right Hilar avg 95.5/15.3 PSV/EDV. Left hilar acceleration time 20 Right hilar acceleration time 30 m/sec. m/sec. Left Renal Dimensions Right Renal Dimensions Left kidney size 8.80 cm . Right kidney size 9.25 cm . Left cortical dimension 1.44 cm . Right cortical dimension 1.6 cm . Aorta Proximal abdominal aorta 1.68 x 2.00 cm . Proximal abdominal aorta peak systolic velocity is 75.9 cm/sec . Distal abdominal aorta 1.05 x 0.92 cm . Distal abdominal aorta peak systolic velocity is 129.3 cm/sec . VL/Renal Artery Duplex Ultrasound Interpretation Summary Right renal artery patent with elevated velocities but with a normal renal-aort ic ratio indicating no significant stenosis Left renal artery patent with normal velocities and no evidence of stenosis Right renal vein patent Left renal vein patent Right kidney normal in size Left kidney decreased in size Ordering Physician: Oren Vick Referring Physician: Greer Hollins Performed By: Adam Alex RVT
[2023-07-31] MEDS: Pantoprazole Sodium 40 MG in 0.9% Normal Saline (100mL MB+) 100 ML 330 MG IV (06:14)
[2023-07-31] MEDS: FOSFOMYCIN TROMETHAMINE 3 GM PACKET PO (06:23)
[2023-07-31] MEDS: HYDROmorphone 0.5 MG/0.5 ML SYRINGE IV (06:50)
[2023-07-31] MEDS: 0.9% Saline Lock 10 ML Syringe IV (06:50)
[2023-07-31 07:30] LABS: Absolute Lymphocyte Count 1.82 X10^3/uL (0.83-4.51); Absolute Neutrophil Count 4.4 X10^3/uL (2.0-7.7); Basophil# 0.05 X10^3/uL; Basophil% 0.7 % (0-1); Eosinophil# 0.19 X10^3/uL; Eosinophils% 2.7 % (0-5); Hematocrit 43.9 % (37-47); Hemoglobin 14.7 g/dL (12.0-15.0); Lymphocyte # 1.82 X10^3/ul (0.83-4.51); Lymphocyte % 25.8 % (19-41); Mean Corp Hgb Conc 33.5 g/dL (32-36); Mean Corpuscular Hgb 32.2 pg (27.0-32.0); Mean Corpuscular Volume 96.1 fL (81-99); Mean Platelet Vol. 9.3 fl (6.2-12.0); Monocyte# 0.55 X10^3/uL; Monocyte% 7.8 % (0-10); NRBC Flagged by Analyzer 0 % (0-5); Neutrophil # 4.43 X10^3/uL (2.7-7.7); Neutrophil % 62.9 % (47-70); Platelet Count 226 K/mm3 (150-450); RBC Distribution Width CV 13.7 % (11.6-14.6); RBC Distribution Width SD 48.4 fl (35.1-43.9); Red Blood Count 4.57 M/mm3 (4.2-5.4); White Blood Count 7.1 K/mm3 (4.4-11.0)
[2023-07-31 07:53] LABS: Troponin-I HS 8 pg/mL (3.0-54.0)
[2023-07-31 08:09] LABS: Anion Gap 4 (5-15); BUN 12 mg/dL (7-18); BUN/Creat Ratio 14.9 RATIO (10-20); Calcium,Total 8.9 mg/dL (8.5-10.1); Chloride 109 mmol/L (98-107); Cholesterol 241 mg/dL (200); Creatinine, Serum 0.81 mg/dL (0.55-1.02); EST Glomerular Filtration Rate 73 mL/min (>60); Est Glom Filt Rate - Afr Amer 89 mL/min (>60); Estimated Creatinine Clearance 46.73 ml/min; Glucose 117 mg/dL (74-106); High Density Lipoprotein 51 mg/dL; Potassium 3.5 mmol/L (3.5-5.1); Sodium Level 141 mmol/L (136-145); Thyroid Stim Hormone (TSH) 3.27 uIU/mL (0.358-3.74); Triglycerides 216 mg/dL; Very Low Density Lipoprotein 43 mg/dL (5-40)
--- NOTE | 2023-07-31 08:21 | PCM.PN.HOSP ---
Reason for Visit Reason for Visit: Diagnoses Hypokalemia (07/31/23) Hypertensive emergency (07/31/23) Subjective Subjective Still with flank pain. Objective Data Objective Data Vital Signs: Vital Signs Temp Pulse Resp BP Pulse Ox O2 Del Method 36.3 C L 73 18 197/77 H 93 Room Air 07/31/23 06:01 07/31/23 06:01 07/31/23 06:01 07/31/23 06:01 07/31/23 07:00 07/31/23 07:00 Oxygen Delivery Method Room Air Weight: 56.7 kg Body Mass Index (BMI) 22.8 Intake & Output: Intake and Output for Last 24 Hours 07/29/23 07/30/23 07/31/23 23:59 23:59 23:59 Intake Total 110 / 110 Balance 110 / 110 Lab / Micro Data 07/31/23 07:10 07/31/23 07:10 Labs: Laboratory Results - last 24 hr 07/31/23 01:47: WBC 7.4, RBC 4.48, Hgb 14.3, Hct 43.4, MCV 96.9, MCH 31.9, MCHC 32.9, RDW Std Deviation 48.6 H, RDW Coeff of Sarah Beth 13.4, Plt Count 211, MPV 9.4, Immature Gran % (Auto) 0.100, Neut % (Auto) 52.0, Lymph % (Auto) 34.8, Leon % (Auto) 9.4, Eos % (Auto) 3.2, Baso % (Auto) 0.5, Absolute Neuts (auto) 3.9, Absolute Lymphs (auto) 2.59, Nucleated RBC % 0, Sodium 141, Potassium 3.2 L, Chloride 104, Carbon Dioxide 33.0 H, Anion Gap 4 L, BUN 12, Creatinine 0.85, Estim Creat Clear Calc 44.53, Est GFR (MDRD) Af Amer 84, Est GFR (MDRD) Non-Af 69, BUN/Creatinine Ratio 14.2, Glucose 115 H, Calcium 8.8, Troponin I High Sens 7 07/31/23 02:07: Urine Color SEE COMMENT BELOW, Urine Clarity Clear, Urine pH 8.0, Ur Specific [place] 1.010, Urine Protein Negative, Urine Glucose (UA) Normal, Urine Ketones Negative, Urine Occult Blood Negative, Urine Nitrite Negative, Urine Bilirubin Negative, Urine Urobilinogen Normal, Ur Leukocyte Esterase 500 H, Urine RBC 0 SEEN, Urine WBC 0-5 SEEN, Ur Squamous Epith Cells 0 SEEN, Amorphous Sediment 2+, Urine Bacteria RARE, Urine Mucus 0 SEEN 07/31/23 04:18: Troponin I High Sens 7 07/31/23 07:10: WBC 7.1, RBC 4.57, Hgb 14.7, Hct 43.9, MCV 96.1, MCH 32.2 H, MCHC 33.5, RDW Std Deviation 48.4 H, RDW Coeff of Sarah Beth 13.7, Plt Count 226, MPV 9.3, Immature Gran % (Auto) 0.100, Neut % (Auto) 62.9, Lymph % (Auto) 25.8, Leon % (Auto) 7.8, Eos % (Auto) 2.7, Baso % (Auto) 0.7, Absolute Neuts (auto) 4.4, Absolute Lymphs (auto) 1.82, Nucleated RBC % 0, Sodium 141, Potassium 3.5, Chloride 109 H, Carbon Dioxide 28.0, Anion Gap 4 L, BUN 12, Creatinine 0.81, Estim Creat Clear Calc 46.73, Est GFR (MDRD) Af Amer 89, Est GFR (MDRD) Non-Af 73, BUN/Creatinine Ratio 14.9, Glucose 117 H, Calcium 8.9, Troponin I High Sens 8, Triglycerides 216 H, Cholesterol 241 H, LDL Cholesterol 147 H, VLDL Cholesterol 43 H, HDL Cholesterol 51, TSH 3.27, Cortisol 23.70 H Radiography Diagnostic Testing: Radiology Impression Chest/Abdomen/Pelvis CT 07/31/23 01:48 IMPRESSION: There is marked gastric wall thickening at the antrum suggesting gastric ulcer. Electronically Signed: Camacho Solorio MD at 3:36 EDT , Physical Exam Const alert and no apparent distress HEENT head/scalp atraumatic Resp normal respiratory effort, no retractions, no use of accessory muscles and clear to auscultation bilaterally Cardio regular rate, regular rhythm, S1 normal heart sound and S2 normal heart sound GI normal to inspection, nondistended, normoactive bowel sounds and soft to palpation GI Narrative: no CVA tenderness. Extremity normal to inspection Assessment & Plan Assessment/Plan (1) Hypertensive emergency: PLAN: We will continue home losartan 50 mg p.o. daily. We will escalate home metoprolol succinate from 50 mg daily to 75 mg p.o. daily. We will check echocardiogram. We will check arterial duplex of renal arteries. We will check TSH, a.m. cortisol, catecholamines, aldosterone, and aldosterone/renin activity. Troponin was unremarkable. Trend troponins. Received full dose aspirin emergency department. Daily aspirin ordered. Check lipid panel (2) Hypokalemia: PLAN: Hypokalemia Potassium presentation was 3.2. Replacement ordered. Trend. (3) PUD (peptic ulcer disease): PLAN: CT shows gastric wall thickening at the antrum suggesting gastric ulcer Start PPI Follow up with GI PLAN: Plan Chronic conditions: Recent right kidney stone: CT has showed that it has passed. DVT Prophylaxis: Subcutaneous Lovenox ordered. Charges/Coding Visit Charges Inpatient E&M: 15932 Subs Hosp L2
--- NOTE | 2023-07-31 10:57 | NURSING ---
Pt having renal ultrasound at this time
[2023-07-31] MEDS: Multivitamins,Therapeutic Tablet 1 TABLET PO (11:09)
[2023-07-31] MEDS: Cholecalciferol (VIT D3) 25 MCG TABLET (1,000 UNITS) 50 MCG PO (11:09)
[2023-07-31] MEDS: Omega-3 Acid Ethyl Esters 1 GM Capsule PO (11:10)
[2023-07-31] MEDS: Losartan Potassium 100 MG Tablet PO (11:10)
[2023-07-31] MEDS: Enoxaparin 40 MG/0.4 ML Syringe SC (11:11)
[2023-07-31] MEDS: Flu Vacc QS2023-24(65YR UP)/PF 240 MCG/0.7 ML Syringe IM (11:17)
--- NOTE | 2023-07-31 15:46 | DS.PCM_ITS ---
Providers Date of Admission: 07/31/23 Primary Care Physician: Dr. Greer Hollins MD Reason For Visit: HYPERTENSIVE EMERGENCY Diagnosis Discharge Diagnosis (1) Hypertensive emergency: Status: Acute Code(s): I16.1 - Hypertensive emergency Plan: We will continue home losartan 50 mg p.o. daily. We will escalate home metoprolol succinate from 50 mg daily to 75 mg p.o. daily. Echo shows an EF 75% w LVH. Renal duplex pending. TSH and cortisol unremarkable. Troponins negative. Catecholamines, aldosterone, and aldosterone/renin activity pending Troponin was unremarkable. Trend troponins. Received full dose aspirin emergency department. Daily aspirin ordered. Check lipid panel Highly unlikely patient has renal artery stenosis and the fact that her blood pressure is overall doing better seems less likely that this is due to renal artery stenosis. Additional studies are still pending but those can be followed up as outpatient. (2) Hypokalemia: Status: Acute Code(s): E87.6 - Hypokalemia Plan: Hypokalemia Potassium presentation was 3.2. Replacement ordered. Trend. (3) PUD (peptic ulcer disease): Status: Acute Code(s): K27.9 - Peptic ulcer, site unspecified, unspecified as acute or chronic, without hemorrhage or perforation Plan: CT shows gastric wall thickening at the antrum suggesting gastric ulcer Start PPI Follow up with GI (4) Flank pain: Status: Acute Code(s): R10.9 - Unspecified abdominal pain Plan: CT did not show any evidence of a nephrolithiasis. It did show marked gastric wall thickening at the antrum suggesting gastric ulcer. An ulcer, if present would not explain her flank pain. It was noted on a CAT scan that she had on the that she had a borderline right-sided hydronephrosis hydroureteral with that no ureteral stones. There were some small bladder calculi identified which may represent recently passed stones. Patient still having some pain. She we will have the patient take acetaminophen as well as short course of oxycodone if needed. Patient advised, particularly in the possibility of a gastric ulcer no NSAIDs. Plan Chronic conditions: * Recent right kidney stone: CT has showed that it has passed. DVT Prophylaxis: Subcutaneous Lovenox ordered. Medications at Discharge Home Medications cholecalciferol (vitamin D3) 25 mcg (1,000 unit) tablet (Vitamin D3) 2,000 unit PO DAILY 10/23/15 multivitamin with folic acid 400 mcg tablet (Thera) 1 tab PO DAILY 10/23/15 coenzyme Q10 30 mg capsule 45 mg PO DAILY 12/25/17 omega [id number]-fish oil 1,600 mg-500 mg-800 mg/5 mL oral liquid (Fish Oil) 1,700 mg PO DAILY 12/25/17 red yeast rice 600 mg capsule 900 mg PO DAILY 12/25/17 ondansetron 4 mg disintegrating tablet 4 mg PO Q8H PRN nausea and vomiting 3 days #9 tabs 07/28/23 acetaminophen 500 mg capsule 1,000 mg (2 x 500 mg) PO Q8H PRN PRN pain #60 caps 07/31/23 losartan 100 mg tablet 100 mg PO DAILY #30 tabs 07/31/23 metoprolol succinate 50 mg tablet,extended release 24 hr 50 mg PO DAILY 07/31/23 oxycodone 5 mg tablet 5 mg PO Q6H PRN pain 3 days #12 tabs 07/31/23 pantoprazole 40 mg tablet,delayed release (Protonix) 40 mg PO BID #60 tabs 07/31/23 Hospital Course Operations None Procedures 2-D Echocardiogram Summary of Care Provided Minutes Spent on Discharge: 35 Hospital Course: Patient presents with recurrent right flank pain. Patient had a CAT scan that showed no evidence of any nephrolithiasis. However, patient had scan on that showed hydronephrosis hydroureteral and small bladder calculi suggesting passed stone. Patient did have what appeared to be gastric ulcer on her CT. Patient's not had a history of peptic ulcer disease. Let patient take pantoprazole and follow-up with gastroenterology. I do feel that the patient passed a stone given the previous CT imaging. No evidence of any stone at this time. Patient may have irritation of her ureter from that but nothing acute at this time. Blood pressure was also extremely elevated with systolic in the 240s. Patient's losartan has been increased from 50-100 seems to be tolerating that. Patient recommend to follow-up with her primary care doctor as well as check her blood pressure at home. Weight / BMI Weight Weight: 56.7 kg Body Mass Index (BMI) 22.8 ABG / Lab / Microbiology Data 07/31/23 07:10 07/31/23 07:10 Laboratory: Laboratory Results - last 24 hr 07/31/23 01:47: WBC 7.4, RBC 4.48, Hgb 14.3, Hct 43.4, MCV 96.9, MCH 31.9, MCHC 32.9, RDW Std Deviation 48.6 H, RDW Coeff of Sarah Beth 13.4, Plt Count 211, MPV 9.4, Immature Gran % (Auto) 0.100, Neut % (Auto) 52.0, Lymph % (Auto) 34.8, Coffee % (Auto) 9.4, Eos % (Auto) 3.2, Baso % (Auto) 0.5, Absolute Neuts (auto) 3.9, Absolute Lymphs (auto) 2.59, Nucleated RBC % 0, Sodium 141, Potassium 3.2 L, Chloride 104, Carbon Dioxide 33.0 H, Anion Gap 4 L, BUN 12, Creatinine 0.85, Estim Creat Clear Calc 44.53, Est GFR (MDRD) Af Amer 84, Est GFR (MDRD) Non-Af 69, BUN/Creatinine Ratio 14.2, Glucose 115 H, Calcium 8.8, Troponin I High Sens 7 07/31/23 02:07: Urine Color SEE COMMENT BELOW, Urine Clarity Clear, Urine pH 8.0, Ur Specific [place] 1.010, Urine Protein Negative, Urine Glucose (UA) Normal, Urine Ketones Negative, Urine Occult Blood Negative, Urine Nitrite Negative, Urine Bilirubin Negative, Urine Urobilinogen Normal, Ur Leukocyte Esterase 500 H, Urine RBC 0 SEEN, Urine WBC 0-5 SEEN, Ur Squamous Epith Cells 0 SEEN, Amorphous Sediment 2+, Urine Bacteria RARE, Urine Mucus 0 SEEN 07/31/23 04:18: Troponin I High Sens 7 07/31/23 07:10: WBC 7.1, RBC 4.57, Hgb 14.7, Hct 43.9, MCV 96.1, MCH 32.2 H, MCHC 33.5, RDW Std Deviation 48.4 H, RDW Coeff of Sarah Beth 13.7, Plt Count 226, MPV 9.3, Immature Gran % (Auto) 0.100, Neut % (Auto) 62.9, Lymph % (Auto) 25.8, Coffee % (Auto) 7.8, Eos % (Auto) 2.7, Baso % (Auto) 0.7, Absolute Neuts (auto) 4.4, Absolute Lymphs (auto) 1.82, Nucleated RBC % 0, Sodium 141, Potassium 3.5, Chloride 109 H, Carbon Dioxide 28.0, Anion Gap 4 L, BUN 12, Creatinine 0.81, Estim Creat Clear Calc 46.73, Est GFR (MDRD) Af Amer 89, Est GFR (MDRD) Non-Af 73, BUN/Creatinine Ratio 14.9, Glucose 117 H, Calcium 8.9, Troponin I High Sens 8, Triglycerides 216 H, Cholesterol 241 H, LDL Cholesterol 147 H, VLDL Cholesterol 43 H, HDL Cholesterol 51, TSH 3.27, Cortisol 23.70 H Radiography Diagnostic Testing: Radiology Impression Chest/Abdomen/Pelvis CT 07/31/23 01:48 IMPRESSION: There is marked gastric wall thickening at the antrum suggesting gastric ulcer. Electronically Signed: Camacho Solorio MD at 3:36 EDT Reading Location ID and State: [facility] / [place] Tel , Service support , Echocardiogram 07/31/23 05:51 Interpretation Summary Mild concentric left ventricular hypertrophy. Sigmoid septum. The left ventricular ejection fraction is 75 %. Diastolic function is indeterminate. Mild focal mitral valve calcification of the anterior leaflet. Aortic sclerosis, no stenosis. Mild (1+) aortic valve insufficiency. Ordering Physician: Oren Vick Referring Physician: Greer Hollins M.D. Performed By: Sarah Lorenzo RCS D/C Instructions Discharge Diet: No restrictions Meaningful Use Info Meaningful Use Diagnoses (Choose all that apply): None applicable Discharge Plan Admission Admit Date/Time: 07/31/23 04:17 Primary Reason for Your Visit: hypertensive urgency. Attending Provider: Vitor Cote Primary Care Provider: Greer Hollins Consulting Providers: Oren Vick Instructions Additional Instructions / Restrictions: You presented with extremely high blood pressure. Blood pressure is doing much better now. Your losartan will be increased from 50-100 daily. For your abdominal pain, we again saw nothing to explain at this time, however, it appears that you have probably passed a kidney stone previously. Your ureter (the tube that connects your kidney to your bladder) was likely irritated from that stone and hopefully should get better. You may take Tylenol as well as oxycodone to help with the pain. The CAT scan was concerning for an ulcer. Is unclear if you do have an ulcer but I do recommend taking Protonix and to follow-up with gastroenterology. An ulcer would not explain your abdominal pain. Check you blood pressure daily for the next week. Sit for 5 minutes before checking your blood pressure. Discharge Orders/Prescriptions Prescriptions: New losartan 100 mg Tablet 100 mg PO DAILY Qty: 30 0RF pantoprazole [Protonix] 40 mg tablet,delayed release (DR/EC) 40 mg PO BID Qty: 60 0RF oxycodone 5 mg tablet 5 mg PO Q6H PRN (Reason: pain) 3 Days Qty: 12 0RF acetaminophen 500 mg capsule 1,000 mg PO Q8H PRN PRN (Reason: pain) Qty: 60 0RF Continued cholecalciferol (vitamin D3) [Vitamin D3] 1,000 UNIT tablet 2,000 unit PO DAILY Patient Comments: SUPPLEMENT multivitamin with folic acid [Thera] 1 TABLET tablet 1 tab PO DAILY Patient Comments: SUPPLEMENT coenzyme Q10 30 MG capsule 45 mg PO DAILY red yeast rice 600 MG capsule 900 mg PO DAILY Fish Oil 1,600 MG/5 ML liquid 1,700 mg PO DAILY ondansetron 4 mg tablet,disintegrating 4 mg PO Q8H PRN (Reason: nausea and vomiting) 3 Days Qty: 9 0RF metoprolol succinate 50 mg tablet extended release 24 hr 50 mg PO DAILY Discontinued nitrofurantoin macrocrystal 100 mg capsule 100 mg PO BID 7 Days Qty: 14 0RF Rx Instructions: must administer with a meal/food losartan 50 mg tablet 50 mg PO DAILY Referrals / Follow Up: [facility] [Provider Group] - Within 1 Month Greer Hollins MD [Primary Care Provider] - Within 2 Weeks Disposition Disposition (needs filled in before D/C Order can be placed): Home, Self Care Charges/Coding Visit Charges Inpatient E&M: 94501 Disch Hosp >30min
--- NOTE | 2023-07-31 16:28 | CASEMGMT ---
Social Work SW met with pt to discuss advance directives.? Pt confirms she has completed a living will and health care POA naming her Jose Castaneda.? Pt notified that documents are not on file at [facility] and SW requested they be brought in for scanning into the EMR.? RAFAEL Rodriguez
[2023-08-05 15:08] LABS: Dopamine, Pl 62 pg/mL (0-48); Epinephrine, Pl 66 pg/mL (0-62); Norepinephrine, Pl 520 pg/mL (0-874)
[2023-08-19 14:32] LABS: Aldosterone, Serum 9.9 ng/dL (0.0-30.0)
== END 2023-07-31 16:02 | disposition home or self-care (01) ==
LOC: ED 04:20 → PCU 04:39
PROVIDERS: Admitting Provider Hospitalist; Emergency Provider Emergency Medicine; PCP Internal Medicine
DX: I16.1 Hypertensive emergency (principal); E87.6 Hypokalemia; R51.9 Headache, unspecified; M54.9 Dorsalgia, unspecified; E78.5 Hyperlipidemia, unspecified; N13.2 Hydronephrosis with renal and ureteral calculous obstruction; I10 Essential (primary) hypertension; R10.9 Unspecified abdominal pain; Z23 Encounter for immunization; Z79.899 Other long term (current) drug therapy; N39.0 Urinary tract infection, site not specified; Z79.52 Long term (current) use of systemic steroids; K27.9 Peptic ulcer, site unspecified, unspecified as acute or chronic, without hemorrhage or perforation
CPT/HCPCS: 36415; 71260; 74177; 80048; 80061; 81001; 82088; 82384; 82533; 84244; 84443; 84484; 85025; 93005; 93306; 93975; 96365; 96372; 96375; 99221; 99285; G0008; J7040; Q9967; 90662; A4216; G0378

== ENCOUNTER → 2024-12-09 | Outpatient (CLI) | payer MEDICARE, SELFPAY | END | disposition home or self-care (01) | PROVIDERS: PCP Internal Medicine; Referring Provider Otolaryngology; Visit Provider Otolaryngology | DX: J02.9 Acute pharyngitis, unspecified (principal) | CPT/HCPCS: 87070 ==